=== PATIENT | male | born 1980 | race Caucasian/White ===

== ENCOUNTER 2023-09-19 16:16 | Outpatient (CLI) | payer OTHER, SELFPAY ==
--- OUTSIDE RECORDS SUMMARY | 2023-09-19 16:18 | XMS_ITS | Clinical Summary ---
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 No other FHx of DM, CAD, CVA, Cancer Relation Name Status Comments Brother Alive Alive and well Father Alive Alive and well Mother Alive Alive and well Other Sister Alive Alive and well Social History Tobacco Use Types Packs/Day Years Used Date Smoking Tobacco: Never Smokeless Tobacco: Current Chew Tobacco Cessation:Ready to Q uit: No; Counseling Given: Yes Comments:only once and awhile Alcohol Use Standard Drinks/Week Comments Yes 0 (1 standard drink = 0.6 oz pure alcohol) weekly to monthly - 6 to 12 monthly Sex and Gender Information Value Date Recorded Sex Assigned at Not on file Gender Identity Not on file Sexual Orientation Not on file Obstetrics History Last Filed Vital Signs Vital Sign Reading Time Taken Comments Blood Pressure 109/76 12/02/2015 2:44 PM CDT Pulse 74 12/02/2015 2:44 PM CDT Temperature 37.1 ??C (98.8 ??F) 12/02/2015 2:44 PM CD T Respiratory Rate - - Oxygen Saturation 98% 12/02/2015 2:44 PM CDT Inhaled Oxygen Concentration - - Weight 81 kg (178 lb 9.6 oz) 12/02/2015 2:44 PM CDT Height 200.7 cm (6' 7) 12/02/2015 2:44 PM CDT Body Mass Index 20.12 12/02/2015 2:44 PM CDT Plan of Treatment Health Maintenance Due Date Last Done Comments Depression screening for age 12+ 1991 HIV for age 15-65 10/22/1994 Hepatitis C screening for ag e 18-79 10/22/1997 Lipids for age 35-44 10/22/2014 BMI (ht and wt on same day) for age 18+ 12/01/2016 12/02/2015 COVID-19 vaccine series (2022- season) 2023 Influenza for age 9-49 01/15/2024 4, 02/26/2013 Tetanus booster 12/03/2024 12/03/2014, 02/19/2009 Tdap Completed 02/19/2009 Pneumococcal series for age 6-64 Aged Out No longer eligible b ased on patient's age to complete this topic Care Teams Child Care Associate Relationship Specialty Start Date End Date Pcp, No . PCP - General 12/02/15
== END 2023-09-19 16:17 | disposition home or self-care (01) ==
LOC: NFLDREF 16:16
PROVIDERS: PCP Family Medicine; Visit Provider Internal Medicine
DX: L03.115 Cellulitis of right lower limb (principal)
CPT/HCPCS: 87081